=== PATIENT | female | born 1980 ===

== ENCOUNTER 2021-11-27 18:54 | Emergency (ER) | payer OTHER ==
[~2021-11-27] VITALS: Ht 165.1 cm; Wt 77.2 kg
[2021-11-27 19:09] VITALS: BP 98/52
== END 2021-11-27 21:00 | disposition left against medical advice (07) ==
LOC: EMS 18:57
DX: Z53.21 Procedure and treatment not carried out due to patient leaving prior to being seen by health care provider (principal)